=== PATIENT | female | born 1985 | race Two or more races ===

== ENCOUNTER 2020-07-30 02:03 | Emergency (ER) | payer MEDICAID ==
[~2020-07-30] VITALS: Ht 154.9 cm; Wt 71.8 kg
[2020-07-30] MEDS ORDERED: IBUPROFEN 600MG TABLET PO STA (03:49)
[2020-07-30 04:18] VITALS: BP 107/43
[2020-07-30 04:19] LABS: BASOPHILS % 0.6 % (0.0-2.0); EOSINOPHILS % 3.8 % (0.0-5.0); HEMATOCRIT. 38.4 % (36.0-48.0); HEMOGLOBIN. 12.6 g/dL (12.0-16.0); MEAN CORPUSCULAR HEMOGLOBIN 27.5 pg (28.0-32.0); MEAN CORPUSCULAR VOLUME 83.8 fL (81.0-99.0); MEAN PLATELET VOLUME 7.5 fl (7.4-10.4); MONOCYTES % 6.9 % (2.0-8.0); NEUTROPHILS % 51.7 % (40.0-76.0); PLATELET 341 x1000/uL (130-400); RED BLOOD CELL COUNT 4.58 mill/uL (4.2-5.4); RED CELL DISTRIBUTION WIDTH 15.1 % (11.6-14.6)
[2020-07-30 04:22] LABS: CHLORIDE 107 mEq/L (98-107)
== END 2020-07-30 05:24 | disposition home or self-care (01) ==
LOC: ER 02:03
DX: R07.89 Other chest pain (principal)
CPT/HCPCS: 36415; 71045; 80053; 81025; 84484; 85025; 93005; 99285